=== PATIENT | female | born 1970 | race Caucasian/White ===

== ENCOUNTER 2024-06-20 13:21 | Emergency (ER) | payer BC, SELFPAY ==
[2024-06-20] VITALS (7 sets, daily range): BP systolic 119–150; BP diastolic 64–87
[2024-06-20 13:52] LABS: % Basophils 0.9 % (0-2); % Eosinophils 6.4 % (0-6); % Immature Granulocytes 0.3 % (0-0.5); % Lymphocytes 47.4 % (20.5-51.1); % Monocytes 9.5 % (1.7-9.3); % Neutrophils 35.5 % (42.2-75.2); Absolute Basophils 0.1 10^3/uL (0-0.2); Absolute Eosinophils 0.4 10^3/uL (0-0.7); Absolute Lymphocytes 3.2 10^3/uL (1.2-3.4); Absolute Monocytes 0.7 10^3/uL (0.1-0.6); Absolute Neutrophils 2.4 10^3/uL (1.4-6.5); Hematocrit 39.6 % (37.0-47.0); Hemoglobin 13.7 g/dL (12.0-16.0); Mean Corp Hgb Conc. 34.6 g/dL (33.0-37.0); Mean Corpuscular Hgb 31.1 pg (27.0-31.0); Mean Corpuscular Volume 89.8 fL (81.0-99.0); Nucleated Red Blood Cells % 0 %; Platelet Count 246 10^3/uL (130-400); Red Blood Cell Count 4.41 10^6/uL (4.20-5.40); Red Cell Dist. Width 12.3 % (11.5-14.5); White Blood Cell Count 6.8 10^3/uL (4.8-10.8)
[2024-06-20 14:02] LABS: ALT (SGPT) 24 U/L (0-35); AST (SGOT) 31 U/L (14-36); Albumin 4.3 g/dl (3.5-5.0); Alkaline Phosphatase 58 U/L (38-126); Blood Urea Nitrogen 16 mg/dl (7-17); Calcium 9.8 mg/dl (8.4-10.2); Carbon Dioxide 27 mmol/L (22-30); Chloride 105 mmol/L (98-107); Glucose 106 mg/dl (70-99); Lipase 414 U/L (23-300); Sodium 139 mmol/L (135-145); Total Bilirubin 0.6 mg/dl (0.2-1.3); Total Protein 6.8 g/dl (6.3-8.2); eGFR > 60.00
--- NOTE | 2024-06-20 14:13 | ED.GENMED ---
History of Present Illness
<Geoff Helton DO - Last Filed: 06/20/24 20:06>
General
Chief Complaint: Abdominal Pain
Time Seen by Provider: 06/20/24 13:48
<Brunilda Kamara MD, Resident - Last Filed: 06/21/24 07:06>
General
Source: patient
History of Present Illness
History of Present Illness:
53-year-old female, Ms.Lorna Gold, presented to the ER reporting abdominal pain that started 2 hours ago. The pain is sudden in onset, accompanied with some nausea but no vomiting, diffuse, continuous, 10/10, nonradiating. Patient had a coffee
in the morning today, and she was about to have her lunch around noon, she felt nauseous and had abdominal pain. Patient took Tylenol which did not help. No history of fever/chills, diarrhea, hematemesis, hematochezia, melena, chest pain, SOB,
bladder disturbances. Her last menstrual period was 1-1/2-year ago. Patient has a past medical history significant for hyperlipidemia, asthma, multiple episodes of diverticulitis with descending/sigmoid colon diverticulosis, proctocolitis, gastric
bypass in 2021, hiatal hernia repair in 2021, tubal ligation.
Past History
<Geoff Helton DO - Last Filed: 06/20/24 20:06>
Past History
ED Past Medical History: Asthma, GERD, Hypercholesterolemia, Hypothyroidism and Other (Chronic cough, history of constipation, history of anxiety, history of depression, remote history of alcohol abuse and substance abuse sober since 2000.
Pulmonary function tests done last year showed severe obstructive and restrictive lung disease.)
ED Past Surgical History: Other (Umbilical hernia surgery, cryotherapy, bilateral carpal tunnel surgery, tubal ligation; hiatal hernia repair 2021; gastric bypass October 17, 2022)
Social History
Tobacco: Former smoker
Alcohol: Former
Drug: Former user (Sober since 2000) and Narcotics
Personal:
Living: with family
Employment: Employed
Family History
Family History: Negative Diabetes, Hypertension, Early CAD, Asthma or Cancer
Review of Systems
<Brunilda Kamara MD, Resident - Last Filed: 06/21/24 07:06>
Review of Systems
All Other Systems: ROS reviewed and negative except as documented in HPI and ROS
Phy Exam
<Brunilda Kamara MD, Resident - Last Filed: 06/21/24 07:06>
Physical Exam
Physical Exam:
GEN: Patient is in acute distress due to pain, she is in knee-chest position.
Eyes: PERRLA, EOMs intact, no scleral icterus
HENT: NCAT, appears dehydrated, no JVD, no cervical adenopathy.
Lungs: CTAB, no wheezes, rales, rhonchi, normal chest wall excursion
Cardiac: RRR, S1-S2+, no peripheral edema. Radial pulses 2+ bilat
Abdomen: Nondistended, diffuse tenderness to palpation, NABS, no masses or hepatosplenomegaly
Neuro: AO x 3, no focal deficits to BUE/BLE, normal sensation throughout
Skin: No rashes, petechiae. Normal color, no pallor or jaundice.
Psych: Calm, cooperative, proper hygiene
Course
<Geoff Helton, DO - Last Filed: 06/20/24 20:06>
Orders/Labs/Results
Orders:
Orders
06/20/24 13:45
Complete Blood Count/With Diff Urgent
Comprehensive Metabolic Panel Urgent
Lipase Urgent
06/20/24 14:23
Iohexol [Omnipaque] See Protocol PO NOW STA
06/20/24 14:24
Electrocardiogram (*1) Urgent
Reason for Study: Abdominal Pain
CT Abd/pel W Iv And Oral Contr Urgent
Comment:
Reason For Exam: abdominal pain
EKG- Treatment ONCE
06/20/24 14:25
Test Result ONCE
06/20/24 14:32
HCG, Serum Qualitative Screen Urgent
Lactate Level [Lactic Acid] Urgent
06/20/24 14:40
Ketorolac [Toradol] 15 mg IV NOW STA
CR Chest Single View Urgent
Comment: upright chest (air under the diaphragm,bowel perf)
Reason For Exam: Abdominal pain
Abnormal Lab Results
06/20/24
13:45
MCH 31.1 H pg
(27.0-31.0)
Absolute Monos (auto) 0.7 H 10^3/uL
(0.1-0.6)
Neutrophils % 35.5 L %
(42.2-75.2)
Monocytes % 9.5 H %
(1.7-9.3)
Eosinophils % 6.4 H %
(0-6)
Glucose 106 H mg/dl
(70-99)
Lipase 414 H U/L
(23-300)
06/20/24 13:45
06/20/24 13:45
Vital Signs
Initial and Last Documented VS:
Initial Vital Signs
Temp Pulse Resp BP Pulse Ox
98.1 F 58 18 150/87 100
06/20/24 13:24 06/20/24 13:24 06/20/24 13:24 06/20/24 13:24 06/20/24 13:24
Last Documented Vital Signs
Temp Pulse Resp BP Pulse Ox
98.1 F 59 20 137/78 99
06/20/24 13:24 06/20/24 20:06 06/20/24 20:06 06/20/24 20:06 06/20/24 20:06
<Brunilda Kamara MD, Resident - Last Filed: 06/21/24 07:06>
Orders/Labs/Results
Orders:
Orders
06/20/24 13:45
Complete Blood Count/With Diff Urgent
Comprehensive Metabolic Panel Urgent
Lipase Urgent
06/20/24 14:23
Iohexol [Omnipaque] See Protocol PO NOW STA
06/20/24 14:24
Electrocardiogram (*1) Urgent
Reason for Study: Abdominal Pain
CT Abd/pel W Iv And Oral Contr Urgent
Comment:
Reason For Exam: abdominal pain
EKG- Treatment ONCE
06/20/24 14:25
Test Result ONCE
06/20/24 14:32
HCG, Serum Qualitative Screen Urgent
Lactate Level [Lactic Acid] Urgent
06/20/24 14:40
Ketorolac [Toradol] 15 mg IV NOW STA
CR Chest Single View Urgent
Comment: upright chest (air under the diaphragm,bowel perf)
Reason For Exam: Abdominal pain
Abnormal Lab Results
06/20/24
13:45
MCH 31.1 H pg
(27.0-31.0)
Absolute Monos (auto) 0.7 H 10^3/uL
(0.1-0.6)
Neutrophils % 35.5 L %
(42.2-75.2)
Monocytes % 9.5 H %
(1.7-9.3)
Eosinophils % 6.4 H %
(0-6)
Glucose 106 H mg/dl
(70-99)
Lipase 414 H U/L
(23-300)
06/20/24 13:45
06/20/24 13:45
Vital Signs
Initial and Last Documented VS:
Initial Vital Signs
Temp Pulse Resp BP Pulse Ox
98.1 F 58 18 150/87 100
06/20/24 13:24 06/20/24 13:24 06/20/24 13:24 06/20/24 13:24 06/20/24 13:24
Last Documented Vital Signs
Temp Pulse Resp BP Pulse Ox
98.1 F 59 20 137/78 99
06/20/24 13:24 06/20/24 20:06 06/20/24 20:06 06/20/24 20:06 06/20/24 20:06
<Geoff Helton DO - Last Filed: 06/20/24 20:06>
MDM/Problems Addressed
MDM/Problems Addressed:
Acute small bowel to small bowel intussusception
<Brunilda Kamara MD, Resident - Last Filed: 06/21/24 07:06>
MDM/Problems Addressed
Differential Diagnosis Includes:
Bowel perforation versus acute diverticulitis versus small bowel obstruction versus AAA versus mesenteric ischemia versus ovarian torsion versus appendicitis versus cholecystitis versus pancreatitis.
MDM/Problems Addressed:
Patient is started on IV fluids
Pain control with Toradol
CBC unremarkable, CMP�lipase elevated at 414.
Lactate�1.9
EKG�sinus bradycardia.
<Geoff Helton DO - Last Filed: 06/20/24 20:06>
*Radiology
Radiology exam reviewed: preliminary read by ED provider (No free air)
*Pulse Oximetry
Patient hypoxic: no
*Systems Integrator Interpretation
Rate: normal
Interpretation: normal
Rhythm: sinus
*Critical Care Note
Total Time (30-74mins, 75-104mins- exclusive of procedures): 40 minutes
Data Reviewed
Review of Other/Old Records Reveals: Radiology Studies (Prior CT report reviewed from January)
Source: patient and family
<Geoff Helton DO - Last Filed: 06/20/24 20:06>
Patient Management
Discussion with other providers: Materials Intern (Bariatric surgery at [facility])
<Geoff Helton DO - Last Filed: 06/20/24 20:06>
Update Note
Update Note:
Patient reassessed and CT noted. Given intussusception, abdomen reassessment patient feels markedly improved. In fact in the past visit she had the same diagnosis and felt much better prior to consideration for transfer. Case was discussed with
general surgery recommended transfer. Case was discussed with a Dr. Crawofrd bariatric surgery at [facility]. He states that the symptoms have resolved there is no surgical intervention needed and she can be discharged for outpatient follow-up
in their office. On reassessment the patient is hungry. Given some crackers and trial oral intake. If tolerates okay for discharge
ED Attending Note
<Geoff Helton, - Last Filed: 06/20/24 20:06>
ED Attending Note
Patient seen and examined by attending physician: Yes
I performed a history and physical exam of patient and discussed management with resident, I reviewed resident's note and agree with documented findings and plan of care.: Yes
ED Attending Note:
53-year-old female with a history of gastric bypass who presents with severe acute onset of abdominal pain. The patient states the pain is severe. She was here back in January with something somewhat similar. Patient states that she really was not
doing especially when the pain started. Little bit nauseous. No melena or hematochezia. No chest pain. Exam: Abdomen soft no rebound but is tender in the epigastric area. Hypoactive bowel sounds. No respiratory distress. Assessment plan:
Check CT abdomen pelvis and labs
-
Portions of this chart may have been created with voice recognition software.� Occasional wrong word or��sound alike� substitutions may have occurred due to the inherent limitations of voice recognition software.
Discharge Plan
Departure
Patient Disposition: Home (Routine Discharge)
Date of Disposition: 06/20/24
Time of Disposition: 18:18
Patient with high blood pressure during this ER visit?: No
Discharge Problem:
SBO (small bowel obstruction), Intussusception
Instructions: Clear Liquid Diet, Abdominal Pain
Prescriptions:
No Action
albuterol sulfate 1 PUFF HFA aerosol inhaler
2 puff inhalation R [id number] PRN (Reason: sob, wheezing)
cetirizine 10 MG tablet
10 tab PO DAILY
citalopram 20 MG tablet
20 mg PO DAILY Qty: 0
montelukast 10 MG tablet
10 mg PO DAILY
fluticasone furoate-vilanterol [Breo Ellipta] 1 EACH blister with device
1 ea inhalation R DAILY
Patient Comments:
spouse will bring in to verify dose
rosuvastatin 5 MG tablet
5 mg PO DAILY
bupropion HCl 150 MG tablet extended release 24 hr
150 mg PO DAILY
L.acidoph, paracshaistai,B. lactis 1 EACH capsule
1 ea PO DAILY
levothyroxine 175 MCG tablet
175 mcg PO DAILY@0700 Qty: 30 0RF
pantoprazole 40 MG tablet,delayed release (DR/EC)
40 mg PO BID Qty: 60 0RF
prednisone 50 MG tablet
50 mg PO DAILY Qty: 5 0RF
albuterol sulfate [Ventolin HFA] 90 MCG/PUFF HFA aerosol inhaler
1 puff inhalation BID Qty: 1 0RF
Referrals:
Rosina Lorenzana MD [Family Provider] -
Activity Restrictions/Additional Instructions:
Intussusception
Please see your surgeon in the next 3 to 5 days for follow-up and reevaluation. Return immediately for fevers, worsening pain, vomiting or any other concerns. Please advance diet slowly as discussed.
Interventions
Interventions:
*Risk Screen - Suicide Last Done: 06/20/24 13:24
*General Assessment Last Done: 06/20/24 13:24
*Neglect/Abuse Screening Last Done: 06/20/24 13:24
ED- Fall Risk Assessment Last Done: 06/20/24 13:36
*ED COVID-19 Vaccine History Last Done: 06/20/24 20:06
*Nursing Disposition Last Done: 06/20/24 20:07
FD-Prkhkp-Jecyjgiadg Assessment Last Done: 06/20/24 13:36
Discharge Date and Time
Discharge Date/Time: 06/20/24 20:08
Print Language: CONGOLESE
[2024-06-20] MEDS: OMNIPAQUE 50 ML PO (14:35)
[2024-06-20] MEDS: TORADOL 15 MG IV (14:46)
[2024-06-20 14:49] LABS: Lactic Acid 1.9 mmol/L (0.7-2.0)
[2024-06-20 14:54] LABS: HCG, Serum Qualitative Screen Negative
== END 2024-06-20 20:08 | disposition home or self-care (01) ==
LOC: EMR 13:21
PROVIDERS: Emergency Medicine; Student in an Organized Health Care Education/Training Program; EMERGENCY PHYSICIAN Emergency Medicine; FAMILY PHYSICIAN Family Medicine
DX: K56.699 Other intestinal obstruction unspecified as to partial versus complete obstruction (principal); K56.1 Intussusception; J45.909 Unspecified asthma, uncomplicated; K21.9 Gastro-esophageal reflux disease without esophagitis; E78.00 Pure hypercholesterolemia, unspecified; E03.9 Hypothyroidism, unspecified; F41.8 Other specified anxiety disorders; Z82.49 Family history of ischemic heart disease and other diseases of the circulatory system; Z87.891 Personal history of nicotine dependence; Z98.51 Tubal ligation status; Z98.84 Bariatric surgery status
CPT/HCPCS: 99284; 96374; 71045; 74177; 80053; 83605; 83690; 84703; 85025; 93005; Q9967